=== PATIENT | female | born 2000 | race Hispanic/Latino ===

== ENCOUNTER 2019-06-14 09:11 | Emergency (ER) | payer SELFPAY ==
[~2019-06-14] VITALS: Ht 157.5 cm; Wt 81.6 kg
== END 2019-06-14 09:39 | disposition left against medical advice (07) ==
LOC: FSED 09:11
DX: L73.9 Follicular disorder, unspecified (principal)

== ENCOUNTER 2019-09-24 08:53 | Emergency (ER) | payer SELFPAY ==
[~2019-09-24] VITALS: Ht 154.9 cm; Wt 84.8 kg
== END 2019-09-24 10:05 | disposition home or self-care (01) ==
LOC: FSED 08:53
DX: R50.9 Fever, unspecified (principal); R05 Cough; J11.1 Influenza due to unidentified influenza virus with other respiratory manifestations
CPT/HCPCS: 87400; 99283